=== PATIENT | female | born 1995 | race Caucasian/White ===

== ENCOUNTER 2022-02-18 20:08 | Emergency (ER) | payer MEDICAID ==
[~2022-02-18] VITALS: Ht 162.6 cm; Wt 62.0 kg
[2022-02-18] MEDS ORDERED: METO25 PO (20:17)
[2022-02-18] MEDS ORDERED: SERT-158 PO (20:19)
[2022-02-18] MEDS ORDERED: BUPR-344 PO (20:19)
[2022-02-18] MEDS ORDERED: BUPR1TAB32 SL (20:26)
[2022-02-18] MEDS ORDERED: LOSA-381 PO (20:26)
[2022-02-18] MEDS ORDERED: GABA-1181 PO (20:26)
[2022-02-18] MEDS ORDERED: SERT-162 PO (20:26)
[2022-02-18] MEDS ORDERED: BUPR-50 PO (20:26)
[2022-02-18 20:56] VITALS: BP 139/62
[2022-02-18] MEDS ORDERED: DOXY-354 PO (21:01)
== END 2022-02-18 21:15 | disposition home or self-care (01) ==
LOC: EMS 20:12
DX: F41.9 Anxiety disorder, unspecified (principal); F19.10 Other psychoactive substance abuse, uncomplicated; R00.2 Palpitations; I10 Essential (primary) hypertension; F17.210 Nicotine dependence, cigarettes, uncomplicated; F11.90 Opioid use, unspecified, uncomplicated
CPT/HCPCS: 93005; 99284; Z7502